=== PATIENT | female | born 1980 | race Caucasian/White ===

== ENCOUNTER 2023-10-20 23:07 | Emergency (ER) | payer OTHER ==
[2023-10-20 23:43] VITALS: TEMP 97.4; BMI 24.1
[2023-10-20] MEDS ORDERED: ACETAMINOPHEN INJECTION 100 ML IVPB ONE (23:59)
[2023-10-21] MEDS: ACETAMINOPHEN 1000 MG/100 ML BAG IVPB ONE (00:01)
[2023-10-21] MEDS: HYOSCYAMINE SULFATE 0.125 MG *ODT PO ONE (00:07)
[2023-10-21 00:53] LABS: URINE APPEARANCE CLEAR; URINE BILIRUBIN NEGATIVE (NEGATIVE); URINE COLOR YELLOW; URINE GLUCOSE (UA) NEGATIVE (NEGATIVE); URINE KETONE 2+ (NEGATIVE); URINE LEUK ESTERASE NEGATIVE (NEGATIVE); URINE NITRITE NEGATIVE (NEGATIVE); URINE PROTEIN TRACE (NEGATIVE)
[2023-10-21 00:54] LABS: HEMATOCRIT 35.8 % (32.4-45.2); HEMOGLOBIN 12.1 GM/dL (10.7-15.3); MCH 30.6 pg (25.7-33.7); MCHC 33.8 g/dl (32.0-36.0); MEAN CELL VOLUME 90.6 fl (80-96); MEAN PLT VOLUME 7.9 fl (7.5-11.1); PLATELET COUNT 286 10^3/uL (134-434); RBC 3.96 M/mm3 (3.60-5.2); RDW 13.2 % (11.6-15.6); WHITE BLOOD COUNT 8.7 K/mm3 (4.0-10.0)
[2023-10-21 01:06] VITALS: RESP 14
[2023-10-21 01:16] LABS: POTASSIUM 3.7 mmol/L (3.5-5.1)
[2023-10-21 01:18] LABS: CALCIUM 8.2 mg/dL (8.5-10.1)
[2023-10-21 01:19] LABS: ALBUMIN 2.7 g/dl (3.4-5.0); BLOOD UREA NITROGEN 13.4 mg/dL (7-18)
[2023-10-21 01:22] LABS: CREATININE 0.8 mg/dL (0.55-1.3)
[2023-10-21 01:23] LABS: BILIRUBIN,TOTAL 0.7 mg/dL (0.2-1); TOT PROT 6.2 g/dl (6.4-8.2)
[2023-10-21 01:33] LABS: HCG,QUALITATIVE URINE Negative
[2023-10-21 03:34] VITALS: BP 93/54; PULSE 93
== END 2023-10-21 03:50 | disposition home or self-care (01) ==
LOC: FER 23:07
PROC: 3E033NZ Introduction of Analgesics, Hypnotics, Sedatives into Peripheral Vein, Percutaneous Approach (ICD-10-PCS; principal; 2023-10-20)
DX: R10.84 Generalized abdominal pain (principal); R14.0 Abdominal distension (gaseous); K59.00 Constipation, unspecified
CPT/HCPCS: 36415; 74177-TC; 80053; 81003; 81025; 83605; 83690; 84703; 85027; 87086; 99285-25; J0131; Q9967